=== PATIENT | male | born 1985 | race American Indian/Alaskan Native ===

== ENCOUNTER 2016-12-26 17:13 | Emergency (ER) | payer MEDICAID ==
[2016-12-26] MEDS ORDERED: Sodium Chloride 0.9% 1,000 ML IV ONE (17:30)
--- NOTE | 2016-12-26 18:03 | RAD ---
PROCEDURE: CHEST RADIOGRAPH, 1 VIEW portable study 17:46. HISTORY: Abdominal pain. COMPARISON: None. FINDINGS: LUNGS: Clear. PLEURA: No pneumothorax or pleural fluid seen. CARDIOVASCULAR: No radiographic findings to suggest acute or significant cardiovascular disease. OSSEOUS STRUCTURES: No significant abnormalities. VISUALIZED UPPER ABDOMEN: Normal. OTHER FINDINGS: None. IMPRESSION: No active disease.
--- NOTE | 2016-12-26 18:22 | C.PDOC ---
History Of Present Illness Patient reports that he developed diffuse cramping abdominal pain which is associated with nausea, vomiting, and diarrhea since last night. The patient reports that he has similar episode several days ago after eating at a buffet. Denies fever, chills, dysuria, GI bleeding, or travel. Time Seen by Provider: 12/26/16 17:21 Chief Complaint (Nursing): Abdominal Pain History Per: Patient History/Exam Limitations: no limitations Current Symptoms Are (Timing): Still Present Pain Scale Rating Of: 5 Location Of Pain/Discomfort: Diffuse Radiation Of Pain To:: None Quality Of Discomfort: Cramping Exacerbating Factors: None Alleviating Factors: None Recent travel outside of the [place]: No Past Medical History Reviewed: Historical Data, Nursing Documentation, Vital Signs Vital Signs: Last Vital Signs Temp 98.5 F 12/26/16 17:16 Pulse 61 12/26/16 17:16 Resp 20 12/26/16 17:16 BP 154/83 H 12/26/16 17:16 Pulse Ox 99 12/26/16 19:06 - Medical History PMH: No Chronic Diseases Surgical History: No Surg Hx Family History: States: No Known Family Hx - Social History Hx Alcohol Use: No Hx Substance Use: No Review Of Systems Except As Marked, All Systems Reviewed And Found Negative. Physical Exam - Physical Exam Appears: Well, No Acute Distress Skin: Normal Color, Warm, Dry, No Rash Head: Atraumatic, Normacephalic Eye(s): bilateral: Normal Inspection, PERRL, EOMI Nose: Normal Throat: Normal Neck: Supple Cardiovascular: Rhythm Regular, No Friction Rub, No Murmur Respiratory: Normal Breath Sounds, No Rales, No Rhonchi, No Wheezing Gastrointestinal/Abdominal: Normal Exam, Soft, No Tenderness Back: Normal Inspection, No CVA Tenderness Extremity: Normal ROM, No Swelling Neurological/Psych: Oriented x3, Normal Speech, Normal Motor Gait: Steady ED Course And Treatment - Laboratory Results Result Diagrams: 12/26/16 18:35 12/26/16 18:35 O2 Sat by Pulse Oximetry: 99 (on RA) Pulse Ox Interpretation: Normal - Radiology CXR: Interpreted by Ak CXR Interpretation: Yes: No Acute Disease. No: Infiltrates, Pnemothorax Medical Decision Making Medical Decision Making: On first re-exam, the patient report improvement but still feels cramping. On re-exam, the patient reports improvement of symptoms. Ambulatory in the ED with steady gait. Lungs are CTA, heart is RRR, abdomen is soft, non-tender and patient is tolerating PO well. Follow up with the medical doctor within 1-2 days without fail. Return if worsened. Disposition - Disposition Referrals: Rasheed Melo [Staff Provider] - Sandoval Grace MD [Staff Provider] - Redd Tuttle MD [Staff Provider] - Disposition: HOME/ ROUTINE Disposition Time: 19:45 Condition: GOOD Additional Instructions: Follow up with the medical doctor within 1-2 days without fail. Return if worsened. Prescriptions: Dicyclomine [Bentyl] 20 mg PO BID PRN #20 tab PRN Reason: abdominal pain Famotidine [Pepcid] 20 mg PO DAILY #20 tab Ibuprofen [Motrin] 600 mg PO TID #21 tab Instructions: Gastroenteritis (DC) - Clinical Impression Clinical Impression: Vomiting, Diarrhea, Abdominal pain
[2016-12-26] MEDS ORDERED: Sodium Chloride 0.9% 1,000 ML ONE (18:38)
[2016-12-26 18:39] LABS: BASO % 0.2 % (0.0-2.0); LYMPH # 1.1 K/uL (1.0-4.3); MEAN CORPUSCULAR HEMOGLOBIN 29.2 pg (27.0-31.0); MEAN CORPUSCULAR HGB CONC 33.6 g/dL (33.0-37.0); MEAN PLATELET VOLUME 7.6 fL (7.2-11.7); MONO # 0.4 K/uL (0.0-0.8); MONO % 4.9 % (0.0-10.0); RED CELL DISTRIBUTION WIDTH 13.8 % (11.5-14.5); WHITE BLOOD COUNT 9.2 K/uL (4.8-10.8)
[2016-12-26 18:47] LABS: CHLORIDE 98 mmol/L (98-107); POTASSIUM 4.1 mmol/L (3.6-5.2); SODIUM 139 mmol/L (132-148)
[2016-12-26 18:49] LABS: ALB/GLOB RATIO 1.2 (1.0-2.1); AST/SGOT 30 U/L (17-59); BILIRUBIN,TOTAL 1.4 mg/dL (0.2-1.3); CARBON DIOXIDE 28 mmol/L (22-30); GFR AFRICAN-AMERICAN > 60; TOTAL PROTEIN 8.4 g/dL (6.3-8.3)
[2016-12-26 18:50] LABS: ALKALINE PHOSPHATASE 65 U/L (38-126); ALT/SGPT 27 U/L (21-72); BLOOD UREA NITROGEN 7 mg/dL (9-20); CALCIUM 9.2 mg/dl (8.6-10.4); GLUCOSE,RANDOM 101 mg/dL (75-110)
[2016-12-26] MEDS ORDERED: Alum-Mag Hydrox-Simethicone Susp (30 mL) PO STA (19:00)
[2016-12-26] MEDS ORDERED: Alum-Mag Hydrox-Simethicone Susp (30 mL) ONE (19:09)
[2016-12-26 20:34] VITALS: BP 123/67; PULSE 64; RESP 18; TEMP 98.6; O2SAT 98
== END 2016-12-26 20:48 | disposition home or self-care (01) ==
LOC: C.ER 17:13
DX: R10.9 Unspecified abdominal pain (principal); R11.10 Vomiting, unspecified; R19.7 Diarrhea, unspecified
CPT/HCPCS: 71010; 80053; 83690; 85025; 96361; 96374; 96375; 99284; J1885; J7040